=== PATIENT | male | born 1945 | race Caucasian/White ===

== ENCOUNTER 2020-09-05 09:20 | Observation (INO) | payer MEDICARE, OTHER ==
[~2020-09-05] VITALS: Ht 167.6 cm; Wt 79.2 kg
--- NOTE | 2020-09-05 09:25 | NUR ---
TO ROOM VIA EMS
--- NOTE | 2020-09-05 09:30 | NUR ---
CONDOM CATHETER NOTED TO BE OFF. URINAL TO PATIENT.
--- NOTE | 2020-09-05 09:45 | NUR ---
FAMILY MEMBER AT BEDSIDE
[2020-09-05 10:25] LABS: HEMATOCRIT 41.2 % (39.0-50.0); HEMOGLOBIN 13.4 g/dl (14.0-18.0); IMMATURE GRANULOCYTES 0.2 % (0.0-5.0); MEAN CELL VOLUME 90.2 fL CALC (80.0-100.0); MEAN CORPUSCULAR HGB 29.3 pG CALC (26.0-32.0); MEAN CORPUSCULAR HGB CONC 32.5 g/dL CAL (32.0-36.0); NEUT# 6.28 thou/uL (1.82-7.42); RED BLOOD COUNT 4.57 mill/uL (4.70-6.10); RED CELL DISTRI WIDTH 13.7 % (11.5-15.5)
[2020-09-05 10:27] LABS: URINE BILIRUBIN - DIPSTICK NEGATIVE (NEGATIVE); URINE BLOOD DIPSTICK NEGATIVE (NEGATIVE); URINE COLOR YELLOW; URINE GLUCOSE - DIPSTICK NEGATIVE (NEGATIVE); URINE KETONE NEGATIVE (NEGATIVE); URINE PROTEIN - DIPSTICK NEGATIVE (NEG-TRACE); URINE SPECIFIC GRAVITY 1.015; URINE UROBILINOGEN - DIPSTICK 0.2 E.U./dL (0.2)
[2020-09-05 10:28] LABS: URINE LEUK ESTERASE SMALL (NEGATIVE); URINE NITRITE - DIPSTICK POSITIVE (Negative)
[2020-09-05 10:40] LABS: URINE BACTERIA MANY hpf; URINE SQUAMOUS EPITHELIAL CELL FEW EPI/hpf (0-FEW)
--- NOTE | 2020-09-05 10:40 | NUR ---
RESTING QUIETLY.CALL CANCINO PRESENT
[2020-09-05 10:41] LABS: URINE YEAST MANY hpf
[2020-09-05 10:49] LABS: ALBUMIN 4.3 g/dL (3.2-5.0); ALKALINE PHOSPHATASE 92 u/l (38-126); AMYLASE 98 u/l (30-110); ANION GAP 15 (6-22 (CALC)); BILIRUBIN, TOTAL 0.8 mg/dL (0.0-1.4); BUN 19 mg/dL (8-23); BUN/CREATININE RATIO 14 (12-20 (CALC)); CARBON DIOXIDE 25 mmol/l (22-30); CHLORIDE 99 mmol/l (95-108); CREATININE 1.4 mg/dL (0.7-1.3); GFR 49 ML/MIN (>=60 (CALC)); GFR FOR AFR.AMER. 60 ML/MIN (>=60 (CALC)); LIPASE 233 u/l (23-300); POTASSIUM 4.7 mmol/l (3.5-5.1); SGOT/AST 43 u/l (19-48); SODIUM 134 mmol/l (137-146); TOTAL PROTEIN 7.5 g/dL (6.3-8.2)
[2020-09-05] MEDS ORDERED: NORVASC5 M1 PO (10:49)
[2020-09-05] MEDS ORDERED: DIOVAN HC2 PO (10:49)
[2020-09-05] MEDS ORDERED: COREG25 MG PO (10:50)
[2020-09-05] MEDS ORDERED: SIMVASTATIN20 MG PO (10:51)
[2020-09-05] MEDS ORDERED: LOVAZA1 CAP PO (10:51)
[2020-09-05] MEDS ORDERED: ASPIRIN81 MG PO (10:51)
[2020-09-05] MEDS ORDERED: ALLOPURINOL100 MG PO (10:52)
[2020-09-05 10:57] LABS: ACT PARTIAL THROMBO TIME 25.9 SECONDS (20.0-32.5); PROTHROMBIN TIME 10.6 SECONDS (9.0-12.5)
--- NOTE | 2020-09-05 12:09 | NUR ---
dr Galeano to bedside to discuss findings and poc
--- NOTE | 2020-09-05 13:00 | NUR ---
ronnie resting quietly. call lincoln in reach
--- NOTE | 2020-09-05 13:52 | NUR ---
report called to nurse Hugh in SBAR format.
--- NOTE | 2020-09-05 14:00 | NUR ---
patient transferred to room via stretcher. Stable upon arrival.
[2020-09-05 14:07] VITALS: BP 126/64
--- NOTE | 2020-09-05 15:07 | NUR ---
PT RECEIVED TO ROOM 261 VIA STRETCHER FROM ER ACCOMPANIED BY ATUL HAGER. PT IS ALERT AND ORIENTED X 3. LUNGS CLEAR, RA. PT IS NORMALLY AMBULATORY AT HOME BUT STATES LEFT FLANK PAIN HAS BEEN SO INTENSE THAT HE CANNOT WALK WHEN IT HITS. AT BEDSIDE. IVF STARTED. CONSULT WITH DR MARISCAL COMPLETED.
--- NOTE | 2020-09-05 17:43 | NUR ---
PT SEEN BY SPEEDY ESPINOSA. PT SEEN BY OCCUPATIONAL THERAPIST. PT WITH CONDOM CATHETER IN PLACE, APPEARS TO DRAIN NORMALLY. PT DOES NOT APPEAR UNCOMFORTABLE.
[2020-09-05 19:00] VITALS: BP 112/59
--- NOTE | 2020-09-05 20:00 | NUR ---
PATIENT RESTING IN BED AT THIS TIME. AWAKE ALERT AND ORIENTED3. PATIENT WITH TELE MONITOR IN PLACE. IV SITE TO RAC INTACT WITH NS PATENT AND INFUSING AT 75CC/HR. SITE IS HEALTHY AT THIS TIME. PATIENT WITH CONDOM CATH IN PLACE DRAINING YELLOW U RINE. STATES THAT HE HAS BEEN USING CONDOM CATH AT HOME FOR ABOUT 2YEARS FOR URINE INCONT. HAS HX OF PROSTATE CA AND FREQUENT UTI'S. WAS SUPPOSED TO SEE HIS UROLOGIST TOMORROW BUT ENDED UP HERE INSTEAD. PATIENT STATES THAT WHEN HE GOT UP THIS MORNING HE WAS JUST TOO WEAK TO STAND. NO PAIN JUST WEAKNESS PER PATIENT. SAFETY PRECAUTIONS REINFORCED. CALL LIGHT IN REACH. WILL CONT TO MONITOR.,
--- NOTE | 2020-09-05 20:20 | NUR ---
PT RECEIVED FROM ED TO ROOM 280. ARRIVES VIA STRETCHER ACCOMPANIED BY CLEM HAGER. PT AMBULATORY TO BED. GAIT UNSTEADY. PT DENIES PAIN AT THIS TIME. ORIENTED TO UNIT, ROOM, CALL CANCINO, LIGHTS, TV. ICE WATER PROVIDED. CALL CANCINO WITHIN REACH. AGREES TO CALL PRN.
[2020-09-06] VITALS (7 sets, daily range): BP systolic 99–130; BP diastolic 50–69
--- NOTE | 2020-09-06 00:42 | NUR ---
PATIENT RESTING IN BED AT THIS TIME. TELE MONITOR IN PLACE AND LAST READING WAS SR-61 1DEGREE AVB. IVF PATENT AND INFUSING VIA RAC SITE-ZOSYN HUNG ORDERED. SITE REMAINS HEALTHY AT THIS TIME. CONDOM CATH IN PLACE AND DRAINING YELLOW URINE. CALL LIGHT IN REACH. WILL CONT TO MONITOR.
--- NOTE | 2020-09-06 04:11 | NUR ---
PATIENT RESTING IN BED AT THIS TIME WITH EYES CLOSED AND RESPS ARE EVEN AND UNLABORED. TELE MONITOR IN PLACE. IVF NS PATENT AND INFUSING VIA RAC SITE AT 75CC/HR. CONDOM CATH PATENT AND DRAINING YELLOW URINE. CALL LIGHT IN REACH. WILL CONT TO MONITOR.
[2020-09-06 06:01] LABS: HEMATOCRIT 39.1 % (39.0-50.0); HEMOGLOBIN 12.7 g/dl (14.0-18.0); MEAN CELL VOLUME 89.5 fL CALC (80.0-100.0); MEAN CORPUSCULAR HGB 29.1 pG CALC (26.0-32.0); MEAN CORPUSCULAR HGB CONC 32.5 g/dL CAL (32.0-36.0); RED BLOOD COUNT 4.37 mill/uL (4.70-6.10); RED CELL DISTRI WIDTH 13.5 % (11.5-15.5)
[2020-09-06 06:29] LABS: ANION GAP 13 (6-22 (CALC)); BUN 14 mg/dL (8-23); BUN/CREATININE RATIO 12 (12-20 (CALC)); CALCULATED LDLCHOLESTEROL 37 mg/dL (62-129 (CALC)); CARBON DIOXIDE 22 mmol/l (22-30); CHLORIDE 103 mmol/l (95-108); CHOLESTEROL HDL RATIO 2.7 (<4.4 (CALC)); CREATININE 1.2 mg/dL (0.7-1.3); GFR 59 ML/MIN (>=60 (CALC)); GFR FOR AFR.AMER. > 60 ML/MIN (>=60 (CALC)); HDL CHOLESTEROL 33 mg/dL (>=40); MAGNESIUM 1.8 mg/dL (1.6-2.3); POTASSIUM 4.3 mmol/l (3.5-5.1); SODIUM 133 mmol/l (137-146); TOTAL CHOLESTEROL 87 mg/dl (0-199); TOTAL TRIGLYCERIDES 87 mg/dl (30-149); VLDL CHOLESTROL 17 mg/dl (0-38 (CALC))
--- NOTE | 2020-09-06 10:06 | NUR ---
PT SEEN AWAKE, ALERT, ORIENTED X 3. PT CONTINUES WITH WEAKNESS TO EXTREMITIES, SEEN BY PHYSICAL THERAPIST [place] THIS AM. PT RECEIVING ABX ORDERED FOR UTI. PT WEARS CONDOM CATHETER, DRAINS APPROPRIATELY. DR CORTES HAS EVALUATED PT, NEW ORDERS RECEIVED.
[2020-09-06 10:25] LABS: C-REACTIVE PROTEIN 1.1 mg/dL (0-0.9)
--- NOTE | 2020-09-06 13:01 | NUR ---
PT PROVIDED PREDNISONE ORDERED. PT AT REST IN THE BED, NO DISTRESS.
--- NOTE | 2020-09-06 15:50 | NUR ---
PT REMAINS AT REST IN THE BED. HE TRIED TO HAVE BM IN BEDPAN BUT WAS UNABLE TO DO SO. HAS BEEN HERE FOR A VISIT.
--- NOTE | 2020-09-06 22:04 | NUR ---
PATIENT IS ALERT AND ORIENTED X3. ABLE TO MAKE NEEDS KNOWN. RESPIRATIONS EASY ON ROOM AIR. ON TELEMETRY SR 1ST DEG AVB. SKIN INTACT. DENIES PAIN. MEDICATION COMPLIANT. BED IN LOW POSITION. CALL LIGHT WITHIN REACH.
[2020-09-07 04:00] VITALS: BP 119/59
[2020-09-07 05:06] LABS: HEMATOCRIT 40.7 % (39.0-50.0); HEMOGLOBIN 13.4 g/dl (14.0-18.0); MEAN CELL VOLUME 89.5 fL CALC (80.0-100.0); MEAN CORPUSCULAR HGB 29.5 pG CALC (26.0-32.0); MEAN CORPUSCULAR HGB CONC 32.9 g/dL CAL (32.0-36.0); RED BLOOD COUNT 4.55 mill/uL (4.70-6.10); RED CELL DISTRI WIDTH 13.5 % (11.5-15.5)
[2020-09-07 05:18] LABS: ANION GAP 13 (6-22 (CALC)); BUN 13 mg/dL (8-23); BUN/CREATININE RATIO 12 (12-20 (CALC)); CARBON DIOXIDE 21 mmol/l (22-30); CHLORIDE 105 mmol/l (95-108); CREATININE 1.1 mg/dL (0.7-1.3); GFR > 60 ML/MIN (>=60 (CALC)); GFR FOR AFR.AMER. > 60 ML/MIN (>=60 (CALC)); MAGNESIUM 1.8 mg/dL (1.6-2.3); POTASSIUM 4.1 mmol/l (3.5-5.1); SODIUM 134 mmol/l (137-146)
[2020-09-07 07:09] VITALS: BP 122/64
--- NOTE | 2020-09-07 07:51 | NUR ---
SHIFT CHANGE REPORT, PT AWAKE ALERT AND ORIENTED RESTING IN BED, STATES HE DOESNT HAVE MUCH PAIN AT THIS TIME BUT FEELS VERY WEAK, IVF INFUSING, TELE MONITOR IN PLACE AND CALL CANCINO IN REACH, BED LOCKED IN LOWEST POSITION.
[2020-09-07] MEDS ORDERED: ERTAPENEM1 GM IV (08:06)
[2020-09-07 10:50] VITALS: BP 120/59
[2020-09-07] MEDS ORDERED: PREDNISONE20 MG PO (11:20)
--- NOTE | 2020-09-07 14:20 | NUR ---
[facility], PT WILL BE LEAVING APPROXIMATELY 1600
[2020-09-07 14:50] VITALS: BP 124/69
--- NOTE | 2020-09-07 15:00 | NUR ---
NURSE WENT IN TO ASSIST PT WITH CATHETER CHANGE, PT INFORED NURSE THAT HE IS UNABLE TO STAND OR AMBULATE, PHYSICAL THERAPIST HAD REPORTED EARLIER THAT PT DID REALLY WELL BUT DIDNT SPECIFY WHAT HE MEANT BY THAT; THEREFORE NURSE ASSUMED PT AMBULATED. IT TOOK 4 STAFF MEMBERS TO TRANSFER PT FROM BED TO WHEEL CHAIR.
--- NOTE | 2020-09-07 16:19 | NUR ---
Discharge instructions given. Patient verbalizes understanding of same. Discharged in poor condition via Wheelchair to [facility] with family. All belongings sent with pt.
--- NOTE | 2020-09-09 08:51 | NUR ---
PRELIM BLOOD CX SHOWS GRAM POSITIVE COCCI IN 1 OF 4. RESULTS REPORTED TO DR CORTES, WILL F/U WITH FINAL
--- NOTE | 2020-09-10 08:28 | NUR ---
BLOOD CX SHOWS LACTOBACILLUS SPECIES, LEUCONOSTIC MESENTEROIDES, CONTAMINANT. REPORTED TO SPEEDY, NO NEW ORDERS RECD
--- NOTE | 2020-10-15 15:08 | NUR ---
Called patient to inform him that he did not recieve Pneumonia vaccine that he consented for when he was in [facility] 09/05/20. Spoke to p[atient's to inform her that [facility] would give vaccine at no charge to patient. She stated that they would get vaccine elsewhere. She thanked me for information.
== END 2020-09-07 16:09 ==
LOC: ED 09:20 → ED-I 12:10 → ED 12:26 → MS2 12:27
PROVIDERS: Nurse Practitioner; ADMIT Internal Medicine; ATTEND Internal Medicine
DX: N12 Tubulo-interstitial nephritis, not specified as acute or chronic (principal); M62.81 Muscle weakness (generalized); N17.9 Acute kidney failure, unspecified; I10 Essential (primary) hypertension; E78.5 Hyperlipidemia, unspecified; I25.10 Atherosclerotic heart disease of native coronary artery without angina pectoris; M10.9 Gout, unspecified; B96.20 Unspecified Escherichia coli [E. coli] as the cause of diseases classified elsewhere; Z16.12 Extended spectrum beta lactamase (ESBL) resistance; Z87.440 Personal history of urinary (tract) infections; Z85.46 Personal history of malignant neoplasm of prostate; Z88.1 Allergy status to other antibiotic agents; Z95.1 Presence of aortocoronary bypass graft; Z20.822 Contact with and (suspected) exposure to COVID-19
CPT/HCPCS: G0378; J1335; J1650; J1956; Q3014; Q9967